=== PATIENT | female | born 1975 | race Two or more races ===

== ENCOUNTER 2019-01-05 06:04 | Day surgery (SDC) | payer OTHER ==
[~2019-01-05 06:04] MED LIST: INDERAL PO
[2019-01-05] MEDS ORDERED: Tylenol #3 PO (08:55)
[2019-01-05] MEDS ORDERED: DOXYCYCLINE HY100 M2 PO (08:55)
== END 2019-01-05 14:40 | disposition home or self-care (01) ==
LOC: CIR.AMB 06:04
DX: N84.0 Polyp of corpus uteri (principal); D25.0 Submucous leiomyoma of uterus